=== PATIENT | male | born 1970 | race Caucasian/White ===

== ENCOUNTER 2016-05-02 09:58 | Emergency (ER) | payer BC ==
--- NOTE | 2016-05-02 11:10 | RAD ---
INDICATION: Head injury, scalp laceration. COMPARISON: Comparison is made with a prior CT of the brain from every 2011. TECHNIQUE: Contiguous axial sections of the brain were obtained from the skull base to the vertex without contrast. FINDINGS: The ventricles, cisterns and sulci are within normal limits. No significant focal abnormality or mass effect is seen. There is no evidence for hemorrhage. There is focal soft tissue swelling and hematoma in the scalp adjacent to the posterior parietal bones at the vertex. The hematoma measures 3.0 x 0.8 cm in size. There is a small amount of air present consistent with the patient's history of a laceration injury. No fracture is seen. There is mucosal thickening within the sphenoid sinus on the right side. The visualized portion of the paranasal sinuses and mastoid air cells otherwise appear clear. IMPRESSION: 1. NO EVIDENCE FOR ACUTE INTRACRANIAL ABNORMALITY. 2. SMALL HEMATOMA IN THE SCALP ADJACENT TO THE POSTERIOR PARIETAL BONES.
[2016-05-02] MEDS ORDERED: Acetaminophen TAB* 325 MG PO ONE (11:23)
--- NOTE | 2016-05-02 11:23 | RAD ---
Indication: RIGHT posterior hip pain radiating down posterior lateral post fall. Soft tissue edema. Comparison: None. Technique: AP pelvis and AP and frog-leg lateral views RIGHT hip. Report: The RIGHT hip is normally located. No fracture of the RIGHT proximal femur or pelvis evident. The RIGHT hip is remarkable for mild acetabular marginal osteophytosis and mild to moderate superior lateral joint space narrowing. Similar degenerative arthropathy at the contralateral hip. Diffuse enthesopathy from the iliac crest superiorly through the lesser trochanters distally. Unremarkable sacroiliac joints and pubic symphysis. Unremarkable soft tissue contours. IMPRESSION: No radiographic evidence for RIGHT hip or pelvic fracture. Mild bilateral hip joint degenerative arthropathy and diffuse enthesopathy.
[2016-05-02 11:54] VITALS: BP 127/68
--- NOTE | 2016-05-02 14:16 | UC ---
Ramon Ibanez Billy, scribed for Jailyn Carter DO on 05/02/16 at 1036 . Head Injury HPI - HPI Summary HPI Summary: Patient is a 46 year-old male coming to [facility] [place] an unwitnessed, mechanical fall this morning at 0920. He states that he felt backwards onto the ground when he slipped on ice. Positive LOC for an unknown duration, but less than 10 minutes. He reports confusion after the fall, improving spontaneously over time. He states that he saw clear, yellow-green nasal discharge as well as active bleeding from the back of his head. Denies any metallic taste in his mouth at any time. He also reports right hip pain after this fall, although he is unsure whether his head or hip hit the ground first. He reports neck pain/ stiffness which is worse with motion. He reports throbbing headache, nausea, fatigue. He reports increased irritability. He also states that after the fall, he would "see red" when his eyes were closed, that resolved over several minutes. Denies any blurred vision, photophobia, or tinnitus. - History Of Current Complaint Chief Complaint: UCHeadInjury Stated Complaint: HEAD INJURY Time Seen by Provider: 05/02/16 10:09 Hx Obtained From: Patient Onset/Duration: Sudden Onset, Lasting Hours, Still Present Severity Currently: Moderate Severity Initially: Moderate Pain Scale Used: 0-10 Numeric Character: Throbbing - headache Aggravating Factor(s): Other - movement Alleviating Factor(s): Nothing Associated Signs And Symptoms: Positive: LOC Duration Unknown, Confusion, Neck Pain, Nausea, Other - nasal discharge, headache, lower back and right hip pain, posterior head pain, fatigue.. Negative: Memory Loss, Vomiting - Allergies/Home Medications Allergies/Adverse Reactions: Allergies Allergy/AdvReac Type Severity Reaction Status Date / Time No Known Allergies Allergy Verified 05/02/16 10:28 PMH/Surg Hx/FS Hx/Imm Hx - Additional Past Medical History Additional PMH: Concussion, depression, ADHD. Psychological History Of: Reports: Depression - Surgical History Surgical History: None - Family History Known Family History: Positive: Cardiac Disease, Hypertension, Diabetes - Social History Occupation: Employed Full-time Lives: With Family Alcohol Use: None Substance Use Type: None Smoking Status (MU): Never Smoked Tobacco Review of Systems Constitutional: Fatigue Skin: Negative Eyes: Other - "seeing red" ENT: Nasal Discharge - clear yellow-green Respiratory: Negative Cardiovascular: Negative Gastrointestinal: Other - nausea Genitourinary: Negative Motor: Negative Neurovascular: Negative Musculoskeletal: Decreased ROM - neck, Other: - right hip and lower back pain Neurological: Headache Psychological: Other - increased irritability All Other Systems Reviewed And Are Negative: Yes Physical Exam Triage Information Reviewed: Yes Appearance: Well-Appearing, No Pain Distress, Well-Nourished Vital Signs: Initial Vital Signs Temp 99.5 F 05/02/16 10:24 Pulse 73 05/02/16 10:24 Resp 16 05/02/16 10:24 BP 126/68 05/02/16 10:24 Pulse Ox 98 05/02/16 10:24 Vital Signs Reviewed: Yes Eyes: Positive: Conjunctiva Clear. Negative: Discharge ENT: Positive: Hearing grossly normal, TMs normal. Negative: Nasal congestion, Nasal drainage, Muffled/hoarse voice Neck: Positive: Supple, Nontender Respiratory: Positive: Lungs clear, Normal breath sounds, No respiratory distress, No accessory muscle use Cardiovascular: Positive: RRR, No Murmur Musculoskeletal: Positive: Other: - pt's spine evaluated from cervical to cocxxyx - no midline tenderness. piriformis exquisitly tender to deep. skull tender to palpation ant to lac. paplable paraspinal tenderness. Neurological: Positive: Alert, Muscle Tone Normal, Other: - Normal neurological exam, somewhat limited secondary to pain. reflexes, strength and sensation intact bl. a&ox3. Psychological: Positive: Age Appropriate Behavior Skin Exam: Other - warm dry normal color Skin: Positive: Other - 1.5cm scalp lac UC Physical Exam Vital Signs On Initial Exam: Initial Vitals Temp Pulse Resp BP Pulse Ox 99.5 F 73 16 126/68 98 05/02/16 10:24 05/02/16 10:24 05/02/16 10:24 05/02/16 10:24 05/02/16 10:24 - Neurological Exam Neurological: Alert, Oriented to Person Place, Time, CN Intact II-III - cn2-12, Reflexes Intact, Cerebellar Dysfunction - none, Dysphagia - none, Facial Symmetry - normal Procedures - Procedure Summary Procedure Summary: Two marietta into the scalp in the occipital region. well tolerated. no complication. Diagnostics - Radiology CT brain Radiology Interpretation Completed By: Radiologist - 1. NO EVIDENCE FOR ACUTE INTRACRANIAL ABNORMALITY. 2. SMALL HEMATOMA IN THE SCALP ADJACENT TO THE POSTERIOR PARIETAL BONES. Hip X-Ray Radiology Interpretation Completed By: Radiologist - No radiographic evidence for RIGHT hip or pelvic fracture. Mild bilateral hip joint degenerative arthropathy and diffuse enthesopathy. Head Injury Course/Dx - Differential Dx/Diagnosis Differential Diagnosis/HQI/PQRI: Cervical Sprain, Concussion With LOC, Contusion , Hematoma, Skull Fracture, Other - hip fx Provider Diagnoses: cervical strain, low back strain, hipsprain, concussion, scalp lac Discharge - Discharge Plan Condition: Stable Disposition: HOME Prescriptions: Cyclobenzaprine TAB* [Flexeril TAB*] 10 mg PO TID PRN #30 tab PRN Reason: Pain HYDROcodone/ACETAMIN 5-325 MG* [[place] 5-325 TAB*] 1 tab PO Q6H PRN #14 tab MDD 4 TABS PRN Reason: Pain Naproxen [Naproxen 500 MG TABS] 500 mg PO BID #14 tab Patient Education Materials: Concussion (ED), Laceration (ED), Hip Sprain (ED) , Crutch Instructions (ED), Low Back Strain (ED), Cervical Strain (ED) Referrals: Gilbert Bianchi MD [Primary Care Provider] - (FOLLOW UP IN 3-5 DAYS. FOLLOW UP SOONER IF YOUR SYMPTOMS WORSEN OR IF YOU DEVELOP AND NEW SYMPTOMS.) Additional Instructions: ANTI-INFLAMMATORY MEDICATION: You have received a prescription for an antiinflammatory agent. This is an excellent, safe drug for pain control. In addition, it has potent antiinflammatory effects which are beneficial, especially in the treatment of injuries, arthritis, or tendonitis. It's best to take this medicine with food. Persons with ulcer disease or allergy to aspirin should notify their physician of this before taking this drug. Take the medication exactly as prescribed. Don't take additional doses unless instructed to do so by your doctor. If you develop wheezing, shortness of breath, hives, faintness, stomach pain, vomiting, or dark black stools, return for re-evaluation at once. ORAL NARCOTIC MEDICATION: You have been given a prescription for pain control. This medication is a narcotic. It's best taken with food, as nausea can result if taken on an empty stomach. Don't operate machinery or drive within six hours of taking this medication. Do not combine this medicine with alcohol, or with any medication which can cause sedation (such as cold tablets or sleeping pills) unless you get permission from the physician. Narcotics tend to cause constipation. If possible, drink plenty of fluids and eat a diet high in fiber and fruits. MUSCLE RELAXERS: Muscle relaxing medications are usually prescribed for acute muscle spasm or injury to the neck and back. They are often combined with antiinflammatory pain medication for increased relief. You may stop the muscle relaxer when the pain and stiffness have improved. Start the medication again if spasms recur. Muscle relaxers may cause drowsiness, especially with the first dose. Do not operate machinery or drive while under the effects of the medication. Most muscle relaxers last up to 24 hours. Do not combine the medication with alcohol. DISCUSSED, THIS MEDICATION CAN CROSS REACT WITH YOUR ANTIDEPRESSANT. PLEASE GO TO THE ED OR RETURN FOR RE-EVALUATION IF YOUR DEVELOP ANY OF THE FOLLOWING: FEVERS, AGGITATION, SWEATING, HEADACHE,SHIVERING, TACHYCARDIA, CONFUSION, TWITCHING, NAUSEA, VOMITING OR TREMORS. YOU WOULD LIKELY BENEFIT FROM OSTEOPATHIC TREATMENT. WE RECOMMEND THAT YOU FIND AN OSTEOPATHIC PHYSICIAN IN YOUR AREA WHO FOCUSES EXCLUSIVELY ON OSTEOPATHIC MANIPULATIVE MEDICINE WITH EXPERTISE IN CRANIAL, MYOFACIAL, LYMPHATIC, VISCERAL AND INTEROSSEOUS WORK The documentation as recorded by the Ramon trent Billy accurately reflects the service I personally performed and the decisions made by , Jailyn Carter DO.
== END 2016-05-02 12:59 | disposition home or self-care (01) ==
LOC: UCEAST 09:58
DX: S16.1XXA Strain of muscle, fascia and tendon at neck level, initial encounter (principal); S39.012A Strain of muscle, fascia and tendon of lower back, initial encounter; S76.011A Strain of muscle, fascia and tendon of right hip, initial encounter; S06.0X9A Concussion with loss of consciousness of unspecified duration, initial encounter; S01.01XA Laceration without foreign body of scalp, initial encounter; W00.0XXA Fall on same level due to ice and snow, initial encounter; Y93.89 Activity, other specified; Y92.9 Unspecified place or not applicable
CPT/HCPCS: 12001; 70450; 99213; A9270-GY; G0463

== ENCOUNTER 2019-04-30 15:09 | Emergency (ER) | payer BC ==
[2019-04-30 15:34] LABS: ABS Eosinophils 0.1 10^3/ul (0-0.6); ABS Monocytes 0.7 10^3/ul (0-0.8); ABS Neutrophils 3.2 10^3/ul (1.5-7.7); Eosinophil % 1.5 %; Hematocrit 41 % (42-52); Hemoglobin 14.2 g/dL (14.0-18.0); Lymphocyte % 19.3 %; Mean Corpuscular HGB Conc 35 g/dL (31-36); Mean Corpuscular Hemoglobin 30 pg (27-31); Mean Corpuscular Volume 86 fL (80-94); Mean Platelet Volume 7.4 fL (7.4-10.4); Platelet Count 284 10^3/uL (150-450); Red Blood Count 4.76 10^6 /uL (4.18-5.48); Red Cell Distribution Width 13 % (10-15)
[2019-04-30 15:52] LABS: Albumin 4.3 g/dL (3.2-5.2); Albumin/Globulin Ratio 1.4 (1-3); BUN/Creatinine Ratio 12.7 (8-20); Calcium 9.2 mg/dL (8.6-10.3); EGFR African American 80.1 (>60); EGFR Non-African American 66.2 (>60); Potassium 3.9 mmol/L (3.5-5.0); Total Bilirubin 0.6 mg/dL (0.2-1.0); Total Protein 7.3 g/dL (6.4-8.9)
[2019-04-30 15:53] LABS: INR 1.04 (0.82-1.09); Troponin I 0.01 ng/mL (<0.03)
--- NOTE | 2019-04-30 18:20 | ED ---
HPI Chest Pain - HPI Summary HPI Summary: Patient complains of sudden onset left anterior chest pain radiating to left shoulder and left scapula with tingling in left arm about 2 hours after hard workout session today. Symptoms lasted about 2 hours and then resolved. No active CP here in the ED. Patient states he works out about 2-3 times a week, denies any recent CP or SOB with workouts. Chest pain described as a squeezing , rated 2/10. Denies SOB, diaphoresis, and/V, cough, sore throat, abdominal pain, change in urine, change in BM. Denies medical history. Denies prior cardiac history. Denies family cardiac history. Nonsmoker. Denies EtOH, recreational drug use, excessive use of stimulants. - History of Current Complaint Chief Complaint: EDChestPainROMI Time Seen by Provider: 04/30/19 18:17 Hx Obtained From: Patient Onset/Duration: Started Hours Ago, Resolved Timing: Lasting Hours Initial Severity: Mild Current Severity: None Pain Intensity: 3 Pain Scale Used: 0-10 Numeric Chest Pain Location: Left Anterior Chest Pain Radiates To:: Shoulder Character: Pressure/Squeezing Aggravating Factor(s): Nothing Alleviating Factor(s): Spontaneous Resolution Associated Signs and Symptoms: Positive: Chest Pain - Allergy/Home Medications Allergies/Adverse Reactions: Allergies Allergy/AdvReac Type Severity Reaction Status Date / Time No Known Allergies Allergy Verified 04/30/19 18:13 Home Medications: Home Medications Bupropion XL* [Wellbutrin XL *] 300 mg PO DAILY 04/30/19 [History Confirmed 07/14] Lisdexamfetamine Dimesylate [Vyvanse] 50 mg PO DAILY 04/30/19 [History Confirmed 04/30/19] PMH/Surg Hx/FS Hx/Imm Hx Endocrine/Hematology History: Denies: Hx Anticoagulant Therapy Cardiovascular History: Denies: Hx Pacemaker/ICD History: Denies: Hx Dialysis Musculoskeletal History: Denies: Hx Rheumatoid Arthritis, Hx Osteoporosis Sensory History: Denies: Hx Eye Prosthesis Opthamlomology History: Denies: Hx Legally Blind EENT History: Denies: Hx Deafness Psychiatric History: Reports: Hx Depression Infectious Disease History: No Infectious Disease History: Denies: History Other Infectious Disease, Traveled Outside the [place] in Last 30 Days - Family History Known Family History: Positive: Cardiac Disease, Hypertension, Diabetes - Social History Alcohol Use: None Substance Use Type: Reports: None Smoking Status (MU): Never Smoked Tobacco Review of Systems Constitutional: Negative Eyes: Negative ENT: Negative Positive: Chest Pain Respiratory: Negative Gastrointestinal: Negative Genitourinary: Negative Musculoskeletal: Negative Skin: Negative Neurological: Negative Psychological: Normal All Other Systems Reviewed And Are Negative: Yes Physical Exam - Summary Physical Exam Summary: Chest pain not reproducible. Lung sounds clear to auscultation bilaterally. Triage Information Reviewed: Yes Vital Signs On Initial Exam: Initial Vitals Temp Pulse Resp BP Pulse Ox 97.8 F 95 18 140/81 97 04/30/19 15:16 04/30/19 15:16 04/30/19 15:16 04/30/19 15:16 04/30/19 15:16 Vital Signs Reviewed: Yes Appearance: Positive: Well-Appearing Skin: Positive: Warm Head/Face: Positive: Normal Head/Face Inspection Eyes: Positive: Normal Neck: Positive: Supple Respiratory/Lung Sounds: Positive: Clear to Auscultation Cardiovascular: Positive: Normal Abdomen Description: Positive: Nontender Musculoskeletal: Positive: Normal Neurological: Positive: Normal Psychiatric: Positive: Normal AVPU Assessment: Alert - Jenny Coma Scale Best Eye Response: 4 - Spontaneous Best Motor Response: 6 - Obeys Commands Best Verbal Response: 5 - Oriented Coma Scale Total: 15 Procedures - Sedation Patient Received Moderate/Deep Sedation with Procedure: No Diagnostics - Vital Signs Vital Signs Temp Pulse Resp BP Pulse Ox 04/30/19 17:15 98.3 F 103 18 120/80 98 04/30/19 15:16 97.8 F 95 18 140/81 97 - Laboratory Lab Results: Lab Results 04/30/19 04/30/19 04/30/19 Range/Units 15:22 15:22 15:22 WBC 5.0 (3.5-10.8) 10^3/uL RBC 4.76 (4.18-5.48) 10^6 /uL Hgb 14.2 (14.0-18.0) g/dL Hct 41 L (42-52) % MCV 86 (80-94) fL MCH 30 (27-31) pg MCHC 35 (31-36) g/dL RDW 13 (10-15) % Plt Count 284 (150-450) 10^3/uL MPV 7.4 (7.4-10.4) fL Neut % (Auto) 64.0 % Lymph % (Auto) 19.3 % [place] % (Auto) 14.3 % Eos % (Auto) 1.5 % Baso % (Auto) 0.9 % Absolute Neuts (auto) 3.2 (1.5-7.7) 10^3/ul Absolute Lymphs (auto) 1.0 (1.0-4.8) 10^3/ul Absolute Monos (auto) 0.7 (0-0.8) 10^3/ul Absolute Eos (auto) 0.1 (0-0.6) 10^3/ul Absolute Basos (auto) 0.0 (0-0.2) 10^3/ul Absolute Nucleated RBC 0.0 10^3/ul Nucleated RBC % 0.0 INR (Anticoag Therapy) 1.04 (0.82-1.09) Sodium 137 (135-145) mmol/L Potassium 3.9 (3.5-5.0) mmol/L Chloride 103 (101-111) mmol/L Carbon Dioxide 28 (22-32) mmol/L Anion Gap 6 (2-11) mmol/L BUN 15 (6-24) mg/dL Creatinine 1.18 H (0.67-1.17) mg/dL Est GFR ( Amer) 80.1 (>60) Est GFR (Non-Af Amer) 66.2 (>60) BUN/Creatinine Ratio 12.7 (8-20) Glucose 93 (70-100) mg/dL Calcium 9.2 (8.6-10.3) mg/dL Total Bilirubin 0.60 (0.2-1.0) mg/dL AST 27 (13-39) U/L ALT 33 (7-52) U/L Alkaline Phosphatase 81 (34-104) U/L Troponin I 0.01 (<0.03) ng/mL Total Protein 7.3 (6.4-8.9) g/dL Albumin 4.3 (3.2-5.2) g/dL Globulin 3.0 (2-4) g/dL Albumin/Globulin Ratio 1.4 (1-3) Result Diagrams: 04/30/19 15:22 04/30/19 15:22 Lab Statement: Any lab studies that have been ordered have been reviewed, and results considered in the medical decision making process. Chest Pain Course/Dx - Course Course Of Treatment: Patient complains of sudden onset left anterior chest pain radiating to left shoulder and left scapula with tingling in left arm about 2 hours after hard workout session today. Symptoms lasted about 2 hours and then resolved. No active CP here in the ED. Patient states he works out about 2-3 times a week, denies any recent CP or SOB with workouts. Chest pain described as a squeezing, rated 2/10. Denies SOB, diaphoresis, and/V, cough, sore throat , abdominal pain, change in urine, change in BM. Denies medical history. Denies prior cardiac history. Denies family cardiac history. Nonsmoker. Denies EtOH, recreational drug use, excessive use of stimulants. Vital signs within normal limits. Labs unremarkable. Serial troponins negative. EKG sinus rhythm, heart rate of 93, normal P axis. No prior EKG on file. Heart score 2. Heart score 2 - Diagnoses Provider Diagnoses: Atypical chest pain Discharge ED - Sign-Out/Discharge Documenting (check all that apply): Patient Departure - Discharge Plan Condition: Stable Disposition: HOME Prescriptions: Cyclobenzaprine TAB* [Flexeril 10 MG TAB*] 10 mg PO TID PRN #12 tab PRN Reason: Spasms Patient Education Materials: Chest Pain (ED) Referrals: Gilbert Bianchi MD [Primary Care Provider] - Shawn Marc MD [Medical Doctor] - Additional Instructions: Follow-up with primary care and [employer] Dr. Marc for possible stress test and further evaluation. Return to the ED for any new or worsening symptoms. - Billing Disposition and Condition Condition: STABLE Disposition: Home - Attestation Statements Provider Attestation: I was available for consult. This patient was seen by the MANUEL. The patient was not presented to, seen by, or examined by me. Scotty Schmitt MD
[2019-04-30] MEDS ORDERED: Ibuprofen TAB* 600 MG PO ONE (19:15)
[2019-04-30] MEDS ORDERED: Cyclobenzaprine TAB* 10 MG PO ONE (19:15)
[2019-04-30 19:37] VITALS: BP 117/72
== END 2019-04-30 19:35 | disposition home or self-care (01) ==
LOC: ED 15:09
DX: R07.89 Other chest pain (principal); M25.512 Pain in left shoulder; R20.2 Paresthesia of skin; F32.9 Major depressive disorder, single episode, unspecified
CPT/HCPCS: 36415; 80053; 84484; 85025; 85610; 93005; 99283; A9270-GY